=== PATIENT | female | born 1985 | race Caucasian/White ===

== ENCOUNTER 2017-01-20 12:30 | Emergency (ER) | payer MEDICAID ==
[~2017-01-20] VITALS: Ht 162.6 cm; Wt 86.2 kg
[2017-01-20 14:12] LABS: BASO # 0.1 x10^3/uL (0.0-0.2); BASO % 1 % (0-3); EOS % 1 % (0-3); HEMATOCRIT 38.6 % (36.0-47.0); HEMOGLOBIN 12.8 g/dL (12.0-15.5); LYMPH % 21 % (24-48); MEAN CORPUSCULAR HEMOGLOBIN 26 pg (25-35); MEAN CORPUSCULAR HGB CONC 33 g/dL (31-37); MEAN CORPUSCULAR VOLUME 79 fL (79-100); MONO % 6 % (0-9); NEUT % 72 % (31-73); PLATELET COUNT 269 x10^3/uL (140-400); RED BLOOD COUNT 4.89 x10^6/uL (3.50-5.40); RED CELL DISTRIBUTION WIDTH 14.7 % (11.5-14.5); WHITE BLOOD COUNT 9.7 x10^3/uL (4.0-11.0)
[2017-01-20 14:23] LABS: CREATININE 0.8 mg/dL (0.6-1.0); GFR 84.8
[2017-01-20] MEDS ORDERED: IBUP200T77 PO (14:24)
--- NOTE | 2017-01-20 14:24 | PHYS DOC ---
Past Medical History Past Medical History: No Pertinent History Past Surgical History: , Tubal ligation Alcohol Use: Occasionally Drug Use: None Adult General Chief Complaint Chief Complaint: VAGINAL BLEEDING HPI HPI 31-year-old female presenting to the emergency department today after having a prolonged menstrual period. She reports having vaginal bleeding approximately 3 or 4 pads per day for the past 4 days. She denies being . She has mild cramping abdominal pain in the suprapubic region associated with menstrual cramping similar to her menstrual cramps previous. The pain is nonradiating intermittent and associated with vaginal bleeding. Review of systems is negative for chest pain shortness of breath fevers chills nausea vomiting or lightheadedness. All other review of systems is negative unless otherwise noted in history of present illness. ED course: 31-year-old female presenting to the emergency department today with prolonged menstrual period. Vital signs showed afebrile with a normal heart rate. Orthostatic vital signs obtained. Unremarkable. CBC and urinalysis along with urine test obtained. The patient was then discharged home in stable condition to follow up with their primary care physician over the next 2- 3 days. They were to return if their symptoms worsened or if they were concerned for any reason. Ngdy-sh-ugks discharge instructions and return precautions were given. Patient's questions were answered to their satisfaction. Patient is comfortable plan. Review of Systems Review of Systems SEE ABOVE. Allergies Allergies Allergies Coded Allergies Type Severity Reaction Last Updated Verified No Known Drug Allergies 01/20/17 No Physical Exam Physical Exam Constitutional: Well developed, well nourished, no acute distress, non-toxic appearance. [] HENT: Normocephalic, atraumatic, bilateral external ears normal, oropharynx moist, no oral exudates, nose normal. Eyes: PERRLA, EOMI, conjunctiva normal, no discharge. [] Neck: Normal range of motion, no tenderness, supple, no stridor. [] Cardiovascular:Heart rate regular rhythm, no murmur [] Lungs & Thorax: Bilateral breath sounds clear to auscultation [] Abdomen: Soft nontender abdomen without rebound tenderness or guarding present. Negative McBurneys point. Negative Villasenor sign. No ecchymosis present. Skin: Warm, dry, no erythema, no rash. Back: No tenderness, no CVA tenderness. [] Extremities: No tenderness, no cyanosis, no clubbing, ROM intact, no edema. [] Neurologic: Alert and oriented X 3, normal motor function, normal sensory function, no focal deficits noted. Psychologic: Affect normal, judgement normal, mood normal. [] Current Patient Data Vital Signs Vital Signs Date Time Temp Pulse Resp B/P (MAP) Pulse Ox O2 Delivery O2 Flow Rate FiO2 01/20/17 12:40 98.8 78 18 168/84 (112) 100 Room Air 98.8 Lab Values Laboratory Tests Test 01/20/17 11:55 01/20/17 14:05 POC Urine HCG, Qualitative Hcg negative (Negative) White Blood Count 9.7 x10^3/uL (4.0-11.0) Red Blood Count 4.89 x10^6/uL (3.50-5.40) Hemoglobin 12.8 g/dL (12.0-15.5) Hematocrit 38.6 % (36.0-47.0) Mean Corpuscular Volume 79 fL (79-100) Mean Corpuscular Hemoglobin 26 pg (25-35) Mean Corpuscular Hemoglobin Concent 33 g/dL (31-37) Red Cell Distribution Width 14.7 % (11.5-14.5) H Platelet Count 269 x10^3/uL (140-400) Neutrophils (%) (Auto) 72 % (31-73) Lymphocytes (%) (Auto) 21 % (24-48) L Monocytes (%) (Auto) 6 % (0-9) Eosinophils (%) (Auto) 1 % (0-3) Basophils (%) (Auto) 1 % (0-3) Neutrophils # (Auto) 7.0 x10^3uL (1.8-7.7) Lymphocytes # (Auto) 2.0 x10^3/uL (1.0-4.8) Monocytes # (Auto) 0.5 x10^3/uL (0.0-1.1) Eosinophils # (Auto) 0.1 x10^3/uL (0.0-0.7) Basophils # (Auto) 0.1 x10^3/uL (0.0-0.2) Laboratory Tests 01/20/17 14:05 EKG EKG [] Radiology/Procedures Radiology/Procedures [] Course & Med Decision Making Course & Med Decision Making Pertinent Labs and Imaging studies reviewed. (See chart for details) [] Dragon Disclaimer Dragon Disclaimer This electronic medical record was generated, in whole or in part, using a voice recognition dictation system. Departure Departure Impression: Primary Impression: Vaginal bleeding Disposition: HOME, SELF-CARE Condition: STABLE Referrals: NON,STAFF (PCP) AIDAN THOMPSON Jr, MD Patient Instructions: Uterine Bleeding, Dysfunctional Additional Instructions: Thank you for allowing us to participate in your care today. Followup with your primary care physician in 2-3 days if your symptoms do not improve. Call your Primary Doctor tomorrow and inform them of your visit today. If you do not have a primary care provider you can ask for a list of our primary care providers. Return to the emergency department you have any new or concerning findings. I recommend you take ibuprofen for pain control. This should be evaluated by the primary care physician and any necessary consulting services for continued management within a few days after discharge. Return to emergency room if you have any new or concerning symptoms including but not limited to fever, chills, nausea, vomiting, intractable pain, any new rashes, chest pain, shortness of air, uncontrolled bleeding, difficulty breathing, and/or vision loss. Scripts Ibuprofen (IBUPROFEN) 200 Mg Tablet 200 MG PO PRN Q6HRS Y for INFLAMMATION, #30 TAB Prov: EUGENIA REIS MD 01/20/17 EUGENIA REIS MD Jan 20, 2017 14:24
[2017-01-20 14:45] VITALS: BP 143/71
== END 2017-01-20 14:50 | disposition home or self-care (01) ==
LOC: ER 12:30
DX: N93.9 Abnormal uterine and vaginal bleeding, unspecified (principal); R10.30 Lower abdominal pain, unspecified; Z98.51 Tubal ligation status; Z98.890 Other specified postprocedural states
CPT/HCPCS: 36415; 80048; 81025; 85027; 99284

== ENCOUNTER 2020-01-03 13:36 | Emergency (ER) | payer MEDICARE, OTHER ==
[~2020-01-03] VITALS: Ht 162.6 cm; Wt 110.1 kg
[~2020-01-03 13:36] MED LIST: IBUP200T77 PO
[2020-01-03 14:21] LABS: CLARITY,URINE CLOUDY; COLOR,URINE BROWN
[2020-01-03 14:22] LABS: BACTERIA,URINE FEW /HPF (0-FEW); RBC,URINE TNTC /HPF (0-2); WBC,URINE >40 /HPF (0-4)
[2020-01-03 14:23] LABS: SQUAMOUS EPITHELIAL CELL,UR FEW /LPF
[2020-01-03] MEDS ORDERED: IV NORMAL SALINE 1000ML BAG 1,000 ML IV ONE (14:45)
--- NOTE | 2020-01-03 14:47 | PHYS DOC ---
Past Medical History Past Medical History: High Cholesterol, Heart Disease, Hypertension Past Surgical History: , Tubal ligation Smoking Status: Never Smoker Alcohol Use: Occasionally Drug Use: None General Adult EDM: Chief Complaint: VAGINAL BLEEDING HPI: HPI: Patient is a 34 year old female who presents with started her period December 20 and she states it was heavier than usual. She stated she is going through a pad an hour. She states it is slow down some and she is not going through a pad an hour anymore. She states she was having large clots. She states she has not stopped bleeding since December 20. Denies abdominal pain, nausea, vomiting, diarrhea, back pain, dysuria, STD concerns, abnormal vaginal discharge, fever, chest pain, shortness of air, dizziness, headache, vision changes, numbness or tingling. She has a history of high cholesterol, hypertension, heart disease, tubal ligation, anemia. Review of Systems: Review of Systems: : Denies dysuria. Vaginal bleeding. [] Heart Score: Risk Factors: Risk Factors: DM, Current or recent (<one month) smoker, HTN, HLP, family history of CAD, obesity. Risk Scores: Score 0 - 3: 2.5% MACE over next 6 weeks - Discharge Home Score 4 - 6: 20.3% MACE over next 6 weeks - Admit for Clinical Observation Score 7 - 10: 72.7% MACE over next 6 weeks - Early Invasive Strategies Allergies: Allergies: Allergies Coded Allergies Type Severity Reaction Last Updated Verified No Known Drug Allergies 01/20/17 No Physical Exam: PE: Constitutional: Well developed, well nourished, no acute distress, non-toxic appearance. [] HENT: Normocephalic, atraumatic, bilateral external ears normal, oropharynx moist, no oral exudates, nose normal. [] Eyes: PERRLA, EOMI, conjunctiva normal, no discharge. [] Neck: Normal range of motion, no tenderness, supple, no stridor. [] Cardiovascular:Heart rate regular rhythm, no murmur [] Lungs & Thorax: Bilateral breath sounds clear to auscultation [] Abdomen: Bowel sounds normal, soft, no tenderness, no masses, no pulsatile masses. Vaginal bleeding. [] Skin: Warm, dry, no erythema, no rash. [] Back: No tenderness, no CVA tenderness. [] Extremities: No tenderness, no cyanosis, no clubbing, ROM intact, no edema. [] Neurologic: Alert and oriented X 3, normal motor function, normal sensory function, no focal deficits noted. [] Psychologic: Affect normal, judgement normal, mood normal. [] Current Patient Data: Labs: Laboratory Tests Test 01/03/20 13:48 01/03/20 14:12 Urine Collection Type Unknown Urine Color Brown Urine Clarity Cloudy Urine pH (<5.0-8.0) Urine Specific [place] (1.000-1.030) Urine Protein mg/dL (NEG-TRACE) Urine Glucose (UA) mg/dL (NEG) Urine Ketones (Stick) mg/dL (NEG) Urine Blood (NEG) Urine Nitrite (NEG) Urine Bilirubin (NEG) Urine Urobilinogen Dipstick mg/dL (0.2 mg/dL) Urine Leukocyte Esterase (NEG) Urine RBC Tntc /HPF (0-2) Urine WBC >40 /HPF (0-4) Urine Squamous Epithelial Cells Few /LPF Urine Bacteria Few /HPF (0-FEW) Urine Mucus Mod /LPF POC Urine HCG, Qualitative Hcg negative (Negative) Vital Signs: Vital Signs Date Time Temp Pulse Resp B/P (MAP) Pulse Ox O2 Delivery O2 Flow Rate FiO2 01/03/20 13:59 98.2 82 20 182/83 (116) 97 Room Air 98.2 EKG: EKG: [] Radiology/Procedures: Radiology/Procedures: [] Impression: [facility] [address] [place], [place] [id number] IMAGING REPORT Signed PATIENT: LV REEVES RACCOUNT: [id number] : 1985 LOCATION: ER AGE: 34 SEX: F EXAM STATUS: REG ER ORD. PHYSICIAN: KWABENA ZAMORANO APRN REASON: HEAVY VAGINAL BLEEDING PROCEDURE: PELVIS COMPLETE PELVIS COMPLETE: 01/03/2020 2:34 PM INDICATION: 34 years old Female. Reason: HEAVY VAGINAL BLEEDING / Spl. Instructions: / History: . COMPARISON: None. TECHNIQUE: Transabdominal and transvaginal sonographic evaluation of the pelvis was performed. Grayscale, color Doppler and spectral waveform analysis were utilized. FINDINGS: UTERUS: Size: 13.3 x 5.9 x 4.7 cm. Masses: None. Endometrium: 7 mm. No suspicious vascularity is identified. RIGHT OVARY: 4.0 x 3.2 x 1.8 cm. Ovary is normal in appearance. LEFT OVARY: 3.4 x 3.3 x 2.5 cm. Ovary is normal in appearance. Arterial and venous waveform are identified within the ovaries bilaterally at the time of imaging. FREE FLUID: None. URINARY BLADDER: Unremarkable. IMPRESSION: No suspicious uterine abnormality. Perfusion is noted to the ovaries bilaterally at the time of imaging. Electronically signed by: Wayne Finney MD (01/03/2020 3:36 PM) [facility] DICTATED and SIGNED BY: WAYNE FINNEY MD DATE: 01/03/201535 Course & Med Decision Making: Course & Med Decision Making Pertinent Labs and Imaging studies reviewed. (See chart for details) Pelvic Exam: Heavy Duty Press Operator present Abdomen: Nontender External Genitalia: Normal Skin Speculum: Normal vaginal mucosa, bloody cervical discharge Bimanual: No adnexal masses or tenderness, No CMT I have sent off a wet prep and chlamydia and gonorrhea culture. Patient refusing prophylactic treatment at this time. She is educated that in 48 hours the test will come back and they will call her only if it is positive. Patient is hemodynamically stable. Ultrasound shows no acute findings. Patient is told if she begins becoming really dizzy or loses consciousness or going through more than 1 pad an hour she needs to either get into see the sales planner as soon as possible or come to the emergency room. Patient states that she is not currently going through more than 1 pad an hour. [] Dragon Disclaimer: Dragon Disclaimer: This electronic medical record was generated, in whole or in part, using a voice recognition dictation system. Departure Departure Impression: Primary Impression: Vaginal bleeding Disposition: 01 HOME, SELF-CARE Condition: STABLE Referrals: UNKNOWN PCP NAME (PCP) AIDAN THOMPSON Jr, MD Patient Instructions: Dysmenorrhea Additional Instructions: Follow-up with sales planner as soon as possible. Drink plenty of fluids. Take Tylenol or ibuprofen for pain. Justicifation of Admission Dx: Justifications for Admission: Justification of Admission Dx: No (NOT NEEDED) KWABENA ZAMORANO [employer]BILE LOUNGE DRIVER Jan 03, 2020 14:47
[2020-01-03 15:12] LABS: BASO # 0.1 x10^3/uL (0.0-0.2); BASO % 1 % (0-3); EOS # 0.3 x10^3/uL (0.0-0.7); EOS % 2 % (0-3); HEMATOCRIT 35.6 % (36.0-47.0); HEMOGLOBIN 11.8 g/dL (12.0-15.5); LYMPH # 2.9 x10^3/uL (1.0-4.8); LYMPH % 23 % (24-48); MEAN CORPUSCULAR HEMOGLOBIN 25 pg (25-35); MEAN CORPUSCULAR HGB CONC 33 g/dL (31-37); MEAN CORPUSCULAR VOLUME 76 fL (79-100); MONO # 0.7 x10^3/uL (0.0-1.1); MONO % 6 % (0-9); NEUT # 8.4 x10^3/uL (1.8-7.7); NEUT % 68 % (31-73); PLATELET COUNT 354 x10^3/uL (140-400); RED BLOOD COUNT 4.68 x10^6/uL (3.50-5.40); WHITE BLOOD COUNT 12.3 x10^3/uL (4.0-11.0)
[2020-01-03 15:22] LABS: CALCIUM 8.7 mg/dL (8.5-10.1); CREATININE 0.9 mg/dL (0.6-1.0); GFR 72.6; POTASSIUM 3.5 mmol/L (3.5-5.1)
[2020-01-03 15:28] LABS: ALBUMIN 3.6 g/dL (3.4-5.0); ALBUMIN/GLOBULIN RATIO 0.8 (1.0-1.7); TOTAL BILIRUBIN 0.3 mg/dL (0.2-1.0)
--- NOTE | 2020-01-03 15:39 | RAD ---
PELVIS COMPLETE: 01/03/2020 2:34 PM INDICATION: 34 years old Female. Reason: HEAVY VAGINAL BLEEDING / Spl. Instructions: / History: . COMPARISON: None. TECHNIQUE: Transabdominal and transvaginal sonographic evaluation of the pelvis was performed. Grayscale, color Doppler and spectral waveform analysis were utilized. FINDINGS: UTERUS: Size: 13.3 x 5.9 x 4.7 cm. Masses: None. Endometrium: 7 mm. No suspicious vascularity is identified. RIGHT OVARY: 4.0 x 3.2 x 1.8 cm. Ovary is normal in appearance. LEFT OVARY: 3.4 x 3.3 x 2.5 cm. Ovary is normal in appearance. Arterial and venous waveform are identified within the ovaries bilaterally at the time of imaging. FREE FLUID: None. URINARY BLADDER: Unremarkable. IMPRESSION: No suspicious uterine abnormality. Perfusion is noted to the ovaries bilaterally at the time of imaging. Electronically signed by: Anny Denis MD (01/03/2020 3:36 PM) [facility]
[2020-01-03 16:00] VITALS: BP 128/76
[2020-01-05 19:09] LABS: GC PROBE Negative (Negative)
== END 2020-01-03 16:20 | disposition home or self-care (01) ==
LOC: ER 13:36
DX: N93.9 Abnormal uterine and vaginal bleeding, unspecified (principal); E78.00 Pure hypercholesterolemia, unspecified; I11.9 Hypertensive heart disease without heart failure; Z98.51 Tubal ligation status; Z86.2 Personal history of diseases of the blood and blood-forming organs and certain disorders involving the immune mechanism
CPT/HCPCS: 76856; 80053; 81001; 81025; 85025; 86850; 86900; 86901; 87086; 87491; 87591; 99284; J7030; Q0111; 36415

== ENCOUNTER 2021-02-09 20:58 | Emergency (ER) | payer MEDICARE, OTHER ==
[~2021-02-09] VITALS: Ht 162.6 cm; Wt 131.5 kg
[2021-02-09 22:14] VITALS: BP 164/86
[2021-02-09] MEDS ORDERED: traMADol 50 MG TABLET PO ONE (22:30)
[2021-02-09] MEDS ORDERED: LIDOCAINE 1% PF 5 ML VIAL. INJ ONE (22:30)
--- NOTE | 2021-02-09 22:32 | RAD ---
Exam: 3 views of the right second digit HISTORY: History of pain, laceration, smash in the door COMPARISON: None available Findings/ impression: Minimally displaced comminuted fracture of the distal phalanx distally with surrounding soft tissue i njury. Electronically signed by: Johnathan Cano MD (02/09/2021 10:30 PM) [id number]
[2021-02-09] MEDS ORDERED: TETANUS AND DIPHTHERIA TOX/PF 0.5 ML DISP.SYRIN. VAX IM ONE (23:45)
[2021-02-09] MEDS ORDERED: TRAM-48 PO (23:47)
[2021-02-09] MEDS ORDERED: CEPH500C PO (23:47)
--- NOTE | 2021-02-09 23:48 | PHYS DOC ---
Past Medical History Past Medical History: High Cholesterol, Heart Disease, Hypertension Past Surgical History: , Tubal ligation Smoking Status: Never Smoker Alcohol Use: Occasionally Drug Use: None General Adult EDM: Chief Complaint: FINGER INJURY HPI: HPI: Patient is a 35 year oldmem-tckp-ste oschf-ayry-nmksihkx female presents for evaluation after smashing her right index finger in the middle front door. Injury occurred prior to arrival. On exam patient has complex laceration distal index finger and avulsion of the distal portion of her fingernail. Bleeding is controlled. Do not see any exposed bone. Patient's tetanus is not up-to-date. Patient has full range of motion of right index finger and cap refill is less than 2 seconds. Review of Systems: Review of Systems: Review of systems: Constitutional symptoms- No fever, no chills. Eyes- No Discharge, No Visual Loss Respiratory symptoms- No shortness of breath, No wheezing, No Dyspnea on Exertion Cardiovascular Systems; No chest pain, No Palpitations, No syncope Gastrointestinal symptoms: NO abdominal pain, no nausea, no vomiting or diarrhea. Genitourinary symptoms: No dysuria. Musculoskeletal symptoms: No back pain No extremity pain. NEUROLOGICAL Symptoms: No headache, no generalized weakness; No focal Weakness Skin: No rash. Positive crush injury right index finger positive laceration positive nail avulsion Heart Score: C/O Chest Pain: N/A Risk Factors: Risk Factors: DM, Current or recent (<one month) smoker, HTN, HLP, family history of CAD, obesity. Risk Scores: Score 0 - 3: 2.5% MACE over next 6 weeks - Discharge Home Score 4 - 6: 20.3% MACE over next 6 weeks - Admit for Clinical Observation Score 7 - 10: 72.7% MACE over next 6 weeks - Early Invasive Strategies Current Medications: Current Medications Medications (Trade) Dose Ordered Sig/Lennie Start Time Stop Time Status Last Admin Dose Admin Lidocaine HCl (Xylocaine-Mpf 1% 5ml Vial) 5 ml 1X ONCE 02/09/21 22:30 02/09/21 22:31 DC 02/09/21 22:18 5 ML Tetanus/ Diphtheria Toxoids (Tenivac Syringe) 0.5 ml ONCE ONCE 02/09/21 23:45 02/09/21 23:46 Tramadol HCl (Ultram) 50 mg 1X ONCE 02/09/21 22:30 02/09/21 22:31 DC 02/09/21 22:18 50 MG Allergies: Allergies: Allergies Coded Allergies Type Severity Reaction Last Updated Verified No Known Drug Allergies 01/20/17 No Physical Exam: PE: Review of systems: Constitutional symptoms- No fever, no chills. Eyes- No Discharge, No Visual Loss Respiratory symptoms- No shortness of breath, No wheezing, No Dyspnea on Exertion Cardiovascular Systems; No chest pain, No Palpitations, No syncope Gastrointestinal symptoms: NO abdominal pain, no nausea, no vomiting or diarrhea. Genitourinary symptoms: No dysuria. Musculoskeletal symptoms: No back pain No extremity pain. NEUROLOGICAL Symptoms: No headache, no generalized weakness; No focal Weakness Skin: No rash. Complex laceration right distal index finger. Partial avulsion of nail right index finger, no exposed bone no deformities of the MCP PIP or DIP Current Patient Data: Vital Signs: Vital Signs Date Time Temp Pulse Resp B/P (MAP) Pulse Ox O2 Delivery O2 Flow Rate FiO2 02/09/21 22:18 94 Room Air EKG: EKG: [] Radiology/Procedures: Radiology/Procedures: [] Impression: Minimally displaced comminuted fracture of the distal phalanx distally with surrounding soft tissue injury. Course & Med Decision Making: Course & Med Decision Making Pertinent Labs and Imaging studies reviewed. (See chart for details) [] Procedure- Repair of right index fingeR Digital block was performed using 5 cc 1% lidocaine. Once successful anesthesia was achieved Wound was explored and no foreign bodies identified. Wound was cleaned with Betadine and hydrogen peroxide A combination of 3.0 and 4.0 nylon used to repair patient's injury. A total of 13 simple interrupted sutures placed Patient tolerated procedure. Patient received 2 g Ancef IM and tetanus booster. Patient also received Ultram for pain. Prescriptions include Keflex and Ultram. Patient was referred to orthopedics. Adriana Disclaimer: Adriana Disclaimer: This electronic medical record was generated, in whole or in part, using a voice recognition dictation system. Departure Departure Impression: Primary Impression: Crushed finger, distal Additional Impressions: Crush injury to finger Open fracture of tuft of distal phalanx of finger Disposition: 01 HOME / SELF CARE / HOMELESS Condition: STABLE Referrals: UNKNOWN PCP NAME (PCP) Patient Instructions: Crush Injury, Fingers or Toes, Finger Fracture Scripts Cephalexin (CEPHALEXIN) 500 Mg Capsule 1 CAP PO QID, #40 CAP Prov: PABLO DIAZ DO 02/09/21 Tramadol Hcl (ULTRAM) 50 Mg Tablet 1 TAB PO PRN Q6HRS PRN for pain MDD 4 Tablet(s) for 7 Days, #28 TAB 0 Refills Prov: PABLO DIAZ DO 02/09/21 PABLO DIAZ DO Feb 09, 2021 23:48
[2021-02-10] MEDS ORDERED: ceFAZolin IM 1 GM VIAL IM ONE (00:15)
[2021-02-10] MEDS ORDERED: DIPH,PERTUSS(ACELL),TET VAC/PF 0.5 ML SYRINGE. VAX IM ONE (01:00)
== END 2021-02-10 00:47 | disposition home or self-care (01) ==
LOC: ER 20:58
DX: S62.630A Displaced fracture of distal phalanx of right index finger, initial encounter for closed fracture (principal); I11.9 Hypertensive heart disease without heart failure; E78.00 Pure hypercholesterolemia, unspecified; W23.0XXA Caught, crushed, jammed, or pinched between moving objects, initial encounter; Y93.89 Activity, other specified; Y92.89 Other specified places as the place of occurrence of the external cause; Y99.8 Other external cause status
CPT/HCPCS: 73140; 90471; 90715; 96372; 99284; J0690; J3490; 12001

== ENCOUNTER 2021-02-14 13:29 | Emergency (ER) | payer MEDICARE, OTHER ==
[~2021-02-14] VITALS: Ht 162.6 cm; Wt 90.9 kg
[~2021-02-14 13:29] MED LIST changes: +CEPH500C PO; +TRAM-48 PO
[2021-02-14] MEDS ORDERED: HYDROcodone/APAP 5/325MG 1 TAB TABLET PO ONE (18:00)
[2021-02-14 18:09] LABS: BASO # 0.1 x10^3/uL (0.0-0.2); BASO % 1 % (0-3); EOS # 0.2 x10^3/uL (0.0-0.7); EOS % 2 % (0-3); HEMATOCRIT 35.8 % (36.0-47.0); HEMOGLOBIN 11.1 g/dL (12.0-15.5); LYMPH # 2.3 x10^3/uL (1.0-4.8); LYMPH % 19 % (24-48); MEAN CORPUSCULAR HEMOGLOBIN 21 pg (25-35); MEAN CORPUSCULAR HGB CONC 31 g/dL (31-37); MEAN CORPUSCULAR VOLUME 69 fL (79-100); MONO # 0.8 x10^3/uL (0.0-1.1); MONO % 6 % (0-9); NEUT % 73 % (31-73); PLATELET COUNT 368 x10^3/uL (140-400); RED CELL DISTRIBUTION WIDTH 18.1 % (11.5-14.5); WHITE BLOOD COUNT 12.4 x10^3/uL (4.0-11.0)
[2021-02-14 18:14] LABS: CALCIUM 8.9 mg/dL (8.5-10.1); CREATININE 0.7 mg/dL (0.6-1.0); GFR 96.4; POTASSIUM 3.9 mmol/L (3.5-5.1)
[2021-02-14 18:20] LABS: ALBUMIN 3.8 g/dL (3.4-5.0); ALBUMIN/GLOBULIN RATIO 0.8 (1.0-1.7); TOTAL BILIRUBIN 0.3 mg/dL (0.2-1.0); TOTAL PROTEIN 8.7 g/dL (6.4-8.2)
--- NOTE | 2021-02-14 18:25 | PHYS DOC ---
Past Medical History Past Medical History: High Cholesterol, Heart Disease, Hypertension Additional Past Medical Histor: "HEART PROBLEM" DX @ [facility] (KWABENA ZAMORANO APRN) Past Surgical History: , Tubal ligation (KWABENA ZAMORANO APRN) Smoking Status: Never Smoker Alcohol Use: Occasionally Drug Use: None (KWABENA ZAMORANO APRN) General Adult EDM: Chief Complaint: WOUND CHECK HPI: HPI: Patient is a 35 year old female who presents with right index finger laceration with sutures from February 09, [address] and yellow purulent fluid. There is tenderness to the finger. Patient has been taking Keflex 4 times a day. She was also given a cefazolin IM shot prior to leaving. Patient states her pain is a 10 out of 10 and is throbbing. Patient has a history of hypertension, heart disease, high cholesterol. (KWABENA ZAMORANO HOUSING INSPECTOR) Review of Systems: Review of Systems: Constitutional: Denies fever or chills. [] Eyes: Denies change in visual acuity. [] HENT: Denies nasal congestion or sore throat. [] Respiratory: Denies cough or shortness of breath. [] Cardiovascular: Denies chest pain or + index finger edema. [] GI: Denies abdominal pain, nausea, vomiting, bloody stools or diarrhea. [] : Denies dysuria. [] Musculoskeletal: Denies back pain or joint pain. + Right index finger pain [] Integument: Denies rash. + Index finger drainage from wound [] Neurologic: Denies headache, focal weakness or sensory changes. [] Endocrine: Denies polyuria or polydipsia. [] Lymphatic: Denies swollen glands. [] Psychiatric: Denies depression or anxiety. [] (KWABENA ZAMORANO HOUSING INSPECTOR) Heart Score: C/O Chest Pain: No Risk Factors: Risk Factors: DM, Current or recent (<one month) smoker, HTN, HLP, family history of CAD, obesity. Risk Scores: Score 0 - 3: 2.5% MACE over next 6 weeks - Discharge Home Score 4 - 6: 20.3% MACE over next 6 weeks - Admit for Clinical Observation Score 7 - 10: 72.7% MACE over next 6 weeks - Early Invasive Strategies (KWABENA ZAMORANO APRN) C/O Chest Pain: N/A (PABLO QUACH I DO) Current Medications: Current Medications Medications (Trade) Dose Ordered Sig/Lennie Start Time Stop Time Status Last Admin Dose Admin Acetaminophen/ Hydrocodone Bitart (Lortab 5/325) 1 tab 1X ONCE 02/14/21 18:00 02/14/21 18:01 DC 02/14/21 18:04 1 TAB (KWABENA ZAMORANO HOUSING INSPECTOR) Allergies: Allergies: Allergies Coded Allergies Type Severity Reaction Last Updated Verified No Known Drug Allergies 01/20/17 No (KWABENA ZAMORANO APRN) Physical Exam: PE: Constitutional: Well developed, well nourished, no acute distress, non-toxic appearance. [] HENT: Normocephalic, atraumatic, bilateral external ears normal, oropharynx moist, no oral exudates, nose normal. [] Eyes: PERRLA, EOMI, conjunctiva normal, no discharge. [] Neck: Normal range of motion, no tenderness, supple, no stridor. [] Cardiovascular:Heart rate regular rhythm, no murmur [] Lungs & Thorax: Bilateral breath sounds clear to auscultation [] Abdomen: Bowel sounds normal, soft, no tenderness, no masses, no pulsatile masses. [] Skin: Warm, dry, no erythema, no rash. + Right index finger purulent drainage [] Back: No tenderness, no CVA tenderness. [] Extremities: Right index finger tenderness, no cyanosis, no clubbing, right index ROM not intact, right index finger 2+ edema. [] Neurologic: Alert and oriented X 3, normal motor function, normal sensory function, no focal deficits noted. [] Psychologic: Affect normal, judgement normal, mood normal. [] (KWABENA ZAMORANO APRN) Current Patient Data: Labs: Laboratory Tests Test 02/14/21 17:59 White Blood Count 12.4 x10^3/uL (4.0-11.0) H Red Blood Count 5.20 x10^6/uL (3.50-5.40) Hemoglobin 11.1 g/dL (12.0-15.5) L Hematocrit 35.8 % (36.0-47.0) L Mean Corpuscular Volume 69 fL (79-100) L Mean Corpuscular Hemoglobin 21 pg (25-35) L Mean Corpuscular Hemoglobin Concent 31 g/dL (31-37) Red Cell Distribution Width 18.1 % (11.5-14.5) H Platelet Count 368 x10^3/uL (140-400) Neutrophils (%) (Auto) 73 % (31-73) Lymphocytes (%) (Auto) 19 % (24-48) L Monocytes (%) (Auto) 6 % (0-9) Eosinophils (%) (Auto) 2 % (0-3) Basophils (%) (Auto) 1 % (0-3) Neutrophils # (Auto) 9.0 x10^3/uL (1.8-7.7) H Lymphocytes # (Auto) 2.3 x10^3/uL (1.0-4.8) Monocytes # (Auto) 0.8 x10^3/uL (0.0-1.1) Eosinophils # (Auto) 0.2 x10^3/uL (0.0-0.7) Basophils # (Auto) 0.1 x10^3/uL (0.0-0.2) Platelet Estimate Pending Sodium Level 139 mmol/L (136-145) Potassium Level 3.9 mmol/L (3.5-5.1) Chloride Level 103 mmol/L (98-107) Carbon Dioxide Level 28 mmol/L (21-32) Anion Gap 8 (6-14) Blood Urea Nitrogen 12 mg/dL (7-20) Creatinine 0.7 mg/dL (0.6-1.0) Estimated GFR (Cockcroft-Gault) 96.4 BUN/Creatinine Ratio 17 (6-20) Glucose Level 90 mg/dL (70-99) Calcium Level 8.9 mg/dL (8.5-10.1) Total Bilirubin Pending Aspartate Amino Transferase (AST) Pending Alanine Aminotransferase (ALT) Pending Alkaline Phosphatase Pending Total Protein Pending Albumin Pending Albumin/Globulin Ratio Pending Laboratory Tests 02/14/21 17:59 Laboratory Tests 02/14/21 17:59 Vital Signs: Vital Signs Date Time Temp Pulse Resp B/P (MAP) Pulse Ox O2 Delivery O2 Flow Rate FiO2 02/14/21 18:04 16 96 Room Air 02/14/21 17:36 98.3 75 164/86 (93) 98.3 (KWABENA ZAMORANO APRN) EKG: EKG: [] (KWABENA ZAMORANO APRN) Radiology/Procedures: Radiology/Procedures: [] (KWABENA ZAMORANO APRN) Course & Med Decision Making: Course & Med Decision Making Pertinent Labs and Imaging studies reviewed. (See chart for details) See HPI. Alert and oriented x4. Ambulatory steady gait. Speaks in full clear sentences. Radial pulse strong present. Cap refill less than 2 seconds. Patient cannot bend the finger at joints. The finger is very swollen. She does have a slight white blood cell count at 12.4. Afebrile. I Ancef for the patient. 1849: Patient is signed over to Dr Quach. [] (KWABENA ZAMORANO APRN) Course & Med Decision Making wound examined. Appears to be healing nicely. No surrounding erythema. I do not appreciated an pus drainage. Treated with IV antiboitics and norco. Patient states she has not followed up with ortho. Patient again referred to ortho-- advised she must call to schedule appointment. Continue current antibiotics. We will prescribe patient hydrocodone. Patient again vies to follow-up with orthopedics. Patient to return to the ER for any concerning signs and symptoms. (PABLO QUACH DO) Dragon Disclaimer: Adriana Disclaimer: This electronic medical record was generated, in whole or in part, using a voice recognition dictation system. (KWABENA ZAMORANO APRN) Departure Departure Impression: Primary Impression: Visit for wound check Additional Impressions: Finger fracture Fracture, finger, open Disposition: HOME / SELF CARE / HOMELESS Referrals: TRACY PATTON (PCP) Patient Instructions: Crush Injury, Fingers or Toes, Sutured Wound Care Scripts Hydrocodone/Acetaminophen (Hydrocodone-Acetamin 5-325 mg) 1 Each Tablet 1 EACH PO Q4-6HRS, #20 TAB Prov: PABLO QUACH DO 02/14/21 KWABENA ZAMORANO APRN Feb 14, 2021 18:25 PABLO QUACH DO Feb 14, 2021 20:03
[2021-02-14 18:33] LABS: PLT ESTIMATE ADEQUATE (ADEQUATE)
[2021-02-14 18:34] LABS: ANISOCYTOSIS SLIGHT; HYPOCHROMIA SLIGHT; MICROCYTOSIS MARKED; POLYCHROMASIA SLIGHT
--- NOTE | 2021-02-14 19:30 | RAD ---
Right hand 3 views. HISTORY: Finger swelling after injury 3 views were taken of the right hand. There is a comminuted fracture at the tuft of the distal phalan x of the right index finger. No other fracture is noted. IMPRESSION: 1. Comminuted fracture tuft distal phalanx right index finger. Electronically signed by: Loy Milian MD (02/14/2021 7:27 PM) [facility]
[2021-02-14] MEDS ORDERED: HYDR-2759 PO (20:02)
[2021-02-14 20:29] VITALS: BP 155/82
== END 2021-02-14 21:00 | disposition home or self-care (01) ==
LOC: ER 13:29
DX: S62.630A Displaced fracture of distal phalanx of right index finger, initial encounter for closed fracture (principal); I11.9 Hypertensive heart disease without heart failure; E78.00 Pure hypercholesterolemia, unspecified; Y28.8XXA Contact with other sharp object, undetermined intent, initial encounter; Y93.89 Activity, other specified; Y92.89 Other specified places as the place of occurrence of the external cause; Y99.8 Other external cause status
CPT/HCPCS: 36415; 73130; 80053; 85025; 96365; 99285; J0690